=== PATIENT | male | born 1975 | race Two or more races ===

== ENCOUNTER 2025-07-17 07:48 | Inpatient (IN) | payer MEDICAID, OTHER ==
[~2025-07-17] VITALS: Ht 175.3 cm; Wt 93.6 kg
--- NOTE | 2025-07-17 08:16 | ED.PDOC ---
History of Present Illness HPI Comments 50 year old male presents the ER with no prior medical history associated with a chief complaint of high blood pressure. Patient reports on having a high blood pressure reading at home for the past three days with symptoms of shortness a breath, headache on and off. Patient notes on having left knee surgery on Monday. Denies chills, fever, N/V/D, CP. No other associated symptoms, modifiers, recent injuries or sick contacts present at this time. Chief Complaint: High Blood Pressure Time Seen by MD: 08:00 Reviewed Notes: Nurses Notes, Medications, Allergies Allergies: Coded Allergies: NO KNOWN ALLERGIES (Unverified , 07/17/25) Home Meds Reported Medications Losartan Potassium (Losartan Potassium) 25 Mg Tab, 1 TAB PO DAILY, #90 TAB 1 Refill 07/17/25 Information Source: Patient Mode of Arrival: Ambulatory Severity: Moderate Timing: Days Duration: Since onset, Days Prehospital treatment: None Past Medical History PAST MEDICAL HISTORY: Denies Surgical History: Denies all surgeries Family History Family History: Reviewed,noncontributory to illness, Unknown Social History Smoker: Non-Smoker Alcohol: Denies ETOH Use Drugs: Denies Drug Use Lives In: Home Constitutional: denies: chills, diaphoresis, fatigue, fever, malaise, sweats, weakness, others EENTM: denies: blurred vision, double vision, ear bleeding, ear discharge, ear drainage, ear pain, ear ringing, eye pain, eye redness, hearing loss, mouth pain, mouth swelling, nasal discharge, nose bleeding, nose congestion, nose pain, photophobia, tearing, throat pain, throat swelling, voice changes, others Respiratory: reports: shortness of breath; denies: cough, hemoptysis, orthopnea, SOB at rest, SOB with excertion, stridor, wheezing, others Cardiovascular: denies: chest pain, dizzy spells, diaphoresis, Dyspnea on exertion, edema, irregular heart beat, left arm pain, lightheadedness, palpitations, PND, syncope, others Gastrointestinal: denies: abdomen distended, abdominal pain, blood streaked bowels, constipated, diarrhea, dysphagia, difficulty swallowing, hematemesis, melena, nausea, poor appetite, poor fluid intake, rectal bleeding, rectal pain, vomiting, others Genitourinary: denies: burning, dysuria, flank pain, frequency, hematuria, incontinence, penile discharge, penile sore, pain, testicle pain, testicle swelling, urgency, others Neurological: reports: headache; denies: dizziness, fainting, left sided numbness, left sided weakness, numbness, paresthesia, pre-existing deficit, right sided numbness, right sided weakness, seizure, speech problems, tingling, tremors, weakness, others Musculoskeletal: denies: back pain, gout, joint pain, joint swelling, muscle pain, muscle stiffness, neck pain, others Integumetry: denies: bruises, change in color, change in hair/nails, dryness, laceration, lesions, lumps, rash, wounds, others Allergic/Immunocompromised: denies: Difficulty Healing, Frequent Infections, Hives, Itching, others Hematologic/Lymphatic: denies: anemia, blood clots, easy bleeding, easy bruising, swollen glands, others Endocrine: denies: excessive hunger, excessive sweating, excessive thirst, excessive urination, flushing, intolerance to cold, intolerance to heat, unexplained weight gain, unexplained weight loss, others Psychiatric: denies: anxiety, bipolar disorder, depression, hopeless, panic disorder, schizophrenia, sleepless, suicidal, others All Other Systems: Reviewed and Negative Physical Exam General Appearance: Moderate Distress, Normal HEENT: Normal ENT Inspection, Pharynx Normal, TMs Normal Neck: Full Range of Motion, Non-Tender, Normal, Normal Inspection Respiratory: Chest Non-Tender, Lungs Clear, No Accessory Muscle Use, No Respiratory Distress, Normal Breath Sounds Cardiovascular: No Edema, No JVD, No Murmur, No Gallop, Normal Peripheral Pulses, Regular Rate/Rhythm Breast Exam: Deferred Gastrointestinal: No Organomegaly, Non Tender, No Pulsatile Mass, Normal Bowel Sounds, Soft Genitalia: Deferred Pelvic: Deferred Rectal: Deferred Extremities: No calf tenderness, Normal capillary refill, Normal inspection, Normal range of motion, Non-tender, No pedal edema Musculoskeletal : Apperance: Normal Neurologic: Alert, ribbon lapper tender II-XII nml as Tested, No Motor Deficits, Normal Affect, Normal Mood, No Sensory Deficits Cerebellar Function: NOT DONE Reflexes: Normal Skin: Dry, Normal Color, Warm Peripheral Pulses: 3+ Radial (R), 3+ Radial (L) Lymphatic: No Adenopathy Was a procedure done? Was a procedure done?: No Differential Dx Considerations may include: Hypertensive urgency Electrolyte imbalance X-Ray, Labs, Meds, VS Vital Signs Date Time Temp Pulse Resp B/P (MAP) Pulse Ox O2 Delivery O2 Flow Rate FiO2 07/17/25 09:57 66 20 98 Room Air* 0 21 07/17/25 09:41 98.3 58 16 158/102 (120) 97 98.3 07/17/25 08:40 156/114 07/17/25 08:32 98.7 63 16 156/114 (128) 96 98.7 07/17/25 08:32 63 16 96 Room Air 07/17/25 07:50 97.6 85 16 172/111 95 97.6 Lab Test 07/17/25 10:03 07/17/25 09:36 07/17/25 08:28 Range/Units White Blood Count 7.3 4.4-10.8 10^3/uL Red Blood Count 5.04 4.5-5.90 10^6/uL Hemoglobin 15.3 13.5-17.5 g/dL Hematocrit 44.9 41.0-53.0 % Mean Corpuscular Volume 89.1 80.0-100.0 fL Mean Corpuscular Hemoglobin 30.3 28.0-32.0 pg Mean Corpuscular Hemoglobin Concent 34.0 32.0-36.0 g/dL Red Cell Distribution Width 13.3 11.8-14.3 % Platelet Count 255 140-450 10^3/uL Mean Platelet Volume 9.1 6.9-10.8 fL Neutrophils (%) (Auto) 55.1 37.0-80.0 % Lymphocytes (%) (Auto) 26.9 10.0-50.0 % Monocytes (%) (Auto) 8.8 0.0-12.0 % Eosinophils (%) (Auto) 8.5 H 0.0-7.0 % Basophils (%) (Auto) 0.7 0.0-2.0 % Neutrophils # (Auto) 4.0 1.6-8.6 10 ^3/uL Lymphocytes # (Auto) 2.0 0.4-5.4 10 ^3/uL Monocytes # (Auto) 0.6 0-1.3 10 ^3/uL Eosinophils # (Auto) 0.6 0-0.8 10 ^3/uL Basophils # (Auto) 0.1 0-0.2 10 ^3/uL Nucleated Red Blood Cells 0.1 % Hemoglobin A1c 6.0 H <5.7 % A1C Troponin I High Sensitivity 77 *H 77 *H </=54 ng/L Urine Color Light-yellow Yellow Urine Clarity Clear Clear Urine pH 6.0 5.0-9.0 Urine Specific [place] 1.019 1.001-1.035 Urine Protein Negative Negative Urine Ketones Negative Negative Urine Blood Negative Negative /uL Urine Nitrite Negative Negative Urine Bilirubin Negative Negative Urine Urobilinogen Normal Negative mg/dL Urine Leukocyte Esterase Negative Negative /uL Urine RBC 1 0 - 3 /hpf Urine Microscopic WBC < 1 0-3 /HPF Urine Squamous Epithelial Cells None seen <5 /hpf Urine Bacteria None seen None Seen /hpf Urine Glucose Normal Normal mg/dL Prothrombin Time 9.7 9.3-11.8 sec Prothrombin Time INR 0.91 0.9-1.15 D-Dimer, Quantitative 0.33 0.0-0.49 mg/L FEU Sodium Level 141 136-145 mmol/L Potassium Level 4.2 3.5-5.1 mmol/L Chloride Level 106 98-107 mmol/L Carbon Dioxide Level 26 20-31 mmol/L Anion Gap 9 5-15 Blood Urea Nitrogen 10 9-23 mg/dL Creatinine 0.93 0.700-1.30 mg/dL Glomerular Filtration Rate Calc 100 >90 mL/min BUN/Creatinine Ratio 10.8 10.0-20.0 Serum Glucose 99 74-106 mg/dL Calcium Level 9.4 8.7-10.4 mg/dL Current Medications Medications (Trade) Dose Ordered Sig/Catalino Route Start Time Stop Time Status Last Admin Amlodipine Besylate (Norvasc Tablet) 10 mg ONCE ONCE PO 07/17/25 08:15 07/17/25 08:16 DC 07/17/25 08:40 Enoxaparin Sodium (Lovenox) 90 mg ONCE ONCE SC 07/17/25 09:30 07/17/25 09:31 DC 07/17/25 09:51 Patient alert. Complaining of high blood pressure. Was given Norvasc pain Cardiac marker elevated. Was given Lovenox. EKG reviewed does not show any acute changes. Extremity in the patient. Echocardiogram. Cardiology consultation. Explained to the patient. Continue monitoring. Time of 1ST Reevaluation: 08:30 Reevaluation 1ST: Unchanged Patient Education/Counseling: Diagnosis, Treatment, Prognosis Family Education/Counseling: No Family Present SEPSIS Sepsis Screen Date sepsis recognized/suspect: Jul 17, 2025 Time Sepsis recognized/suspect: 750 Recent Procedure: No On Antibiotic Therapy: No Respiratory Rate >20: No Heart Rate >90: No Temp<36 C (96.8 F) or >38.3 C: No SBP <90 or MAP <65 mmHG: No New Acute Mental Status Change: No Is the patient on CPAP, BIPAP,: No Vital Signs Date Time Temp Pulse Resp B/P (MAP) Pulse Ox O2 Delivery O2 Flow Rate FiO2 07/17/25 09:57 66 20 98 Room Air* 0 21 07/17/25 09:41 98.3 58 16 158/102 (120) 97 98.3 07/17/25 08:40 156/114 07/17/25 08:32 98.7 63 16 156/114 (128) 96 98.7 07/17/25 08:32 63 16 96 Room Air 07/17/25 07:50 97.6 85 16 172/111 95 97.6 Laboratory Tests Test 07/17/25 10:03 White Blood Count 7.3 10^3/uL (4.4-10.8) Medications Medications Dose Ordered Sig/Catalino Route Start Time Stop Time Status Last Admin Dose Admin Amlodipine Besylate 10 mg ONCE ONCE PO 07/17/25 08:15 07/17/25 08:16 DC 07/17/25 08:40 Enoxaparin Sodium 90 mg ONCE ONCE SC 07/17/25 09:30 07/17/25 09:31 DC 07/17/25 09:51 Departure 1 Departure Time of Disposition: 17:50 Impression: Primary Impression: Hypertensive urgency Additional Impression: Demand ischemia Disposition: ADMITTED INPATIENT Admit to: Med Surg Condition: Guarded Critical Care Note Critical Care Time?: Yes (90 min-critical care time only) Stability Stability form required: No Heart Score Heart Score: Heart Score Response (Comments) Value History Slightly Suspicious 0 EKG Normal 0 Age 45-64 1 Risk Factors >3 or Hx ASHD 2 Troponin 1-2 x's Normal limit 1 Total 4 I personally scribed for KRISTINA JUNG MD ([email or web address]) on 07/17/25 at 08:16. Electronically submitted by Geoffrey Cotto ([email or web address]). KRISTINA JUNG MD Jul 17, 2025 08:16
[2025-07-17 09:00] LABS: Chloride 106 mmol/L (98-107); Potassium 4.2 mmol/L (3.5-5.1); Sodium 141 mmol/L (136-145)
[2025-07-17 09:01] LABS: Anion Gap 9 (5-15); Carbon Dioxide 26 mmol/L (20-31)
[2025-07-17 09:02] LABS: Calcium 9.4 mg/dL (8.7-10.4)
[2025-07-17 09:07] LABS: BUN/Creatinine Ratio 10.8 (10.0-20.0); Blood Urea Nitrogen 10 mg/dL (9-23); Glucose 99 mg/dL (74-106)
[2025-07-17] MEDS: ENOXAPARIN SOD 100 MG/1 ML SYRINGE SC ONE (09:51)
[2025-07-17 09:57] VITALS: PULSE 66; RESP 20; O2SAT 98
--- NOTE | 2025-07-17 11:38 | DVHHP2 ---
Admitting Diagnosis: Right-sided chest pain History of Present Illness 50 year old male presents the ER with no prior medical history associated with a chief complaint of high blood pressure. Patient reports on having a high blood pressure reading at home for the past three days with symptoms of shortness a breath, headache on and off. Patient notes on having left knee surgery on Monday. Denies chills, fever, N/V/D, CP. No other associated symptoms, modifiers, recent injuries or sick contacts present at this time. PAST MEDICAL HISTORY: Denies Surgical History: Denies all surgeries Family History Family History: Reviewed,noncontributory to illness, Unknown Social History Smoker: Non-Smoker Alcohol: Denies ETOH Use Drugs: Denies Drug Use Lives In: Home Allergies: Coded Allergies: NO KNOWN ALLERGIES (Unverified , 07/17/25) Current Medications Current Medications Medications (Trade) Dose Ordered Sig/Catalino Route PRN Reason Start Time Stop Time Status Last Admin Sodium Chloride (Saline Lock Ns) 10 ml Q8HR IV 07/17/25 14:00 UNV Acetaminophen (Tylenol Tablet) 650 mg Q6HP PRN PO PAIN SCALE 1-3 OR TEMP>100.4 07/17/25 11:45 UNV Acetaminophen/ Hydrocodone Bitart ([place] 5/325MG Tab) 1 tab Q4HP PRN PO MODERATE PAIN (4-6 PAIN SCALE) 07/17/25 11:45 UNV Hydromorphone HCl (Dilaudid Injection) 0.5 mg Q4HP PRN IV SEVERE PAIN (7-10 PAIN SCALE) 07/17/25 11:45 UNV Ondansetron HCl (Zofran) 4 mg Q4HP PRN IV NAUSEA / VOMITING 07/17/25 11:45 UNV Nitroglycerin (Ntrostat Sublingual) 0.4 mg Q5MINP PRN SL FOR CHEST PAIN 07/17/25 11:45 UNV Morphine Sulfate 2 mg Q30M PRN IV FOR CHEST PAIN 07/17/25 11:45 UNV Enoxaparin Sodium (Lovenox) 90 mg Q12HR SC 07/17/25 22:00 UNV Vital Signs Vital Signs Date Time Temp Pulse Resp B/P (MAP) Pulse Ox O2 Delivery O2 Flow Rate FiO2 07/17/25 09:57 66 20 98 Room Air* 0 07/17/25 09:41 98.3 158/102 (120) 98.3 Physical Exam Generally-50 years old male, well nourished well developed. Mild distress HEENT-atraumatic normocephalic Heart-regular rate and rhythm Lungs clear to auscultate Abdomen soft nontender nondistended Musculoskeletal-no edema cyanosis Neuro-AO x3, no focal deficits SEPSIS Sepsis Screen Date sepsis recognized/suspect: Jul 17, 2025 Time Sepsis recognized/suspect: 750 Recent Procedure: No On Antibiotic Therapy: No Respiratory Rate >20: No Heart Rate >90: No Temp<36 C (96.8 F) or >38.3 C: No SBP <90 or MAP <65 mmHG: No New Acute Mental Status Change: No Is the patient on CPAP, BIPAP,: No Physician Orders Cardiac Diet-2gna,Lofat,Lochol (07/17/25 Lunch) Npo (Nothing By Mouth) Diet (07/18/25 Breakfast) Complete Blood Count (07/18/25 05:00) Complete Blood Count (07/19/25 05:00) Complete Blood Count (07/20/25 05:00) Complete Blood Count (07/21/25 05:00) Complete Blood Count (07/22/25 05:00) Comprehensive Metabolic Panel (07/18/25 05:00) Comprehensive Metabolic Panel (07/19/25 05:00) Comprehensive Metabolic Panel (07/20/25 05:00) Comprehensive Metabolic Panel (07/21/25 05:00) Comprehensive Metabolic Panel (07/22/25 05:00) Admit (07/17/25 11:33) Code Status (07/17/25 11:33) Vital Signs .PER UNIT PROTOCOL (07/17/25 11:33) Review Orders With Adm.Md (07/17/25 11:33) Encourage Activity As Tolerate (07/17/25 11:33) Sodium Chloride Lock (Saline Lock Ns) (07/17/25 14:00) Acetaminophen Tablet (Tylenol Tablet) (07/17/25 11:45) Notify Md Of Changes From Base (07/17/25 11:33) Advance Directive (07/17/25 11:33) Patient Condition (07/17/25 11:33) Allergies (07/17/25 11:33) Hydrocodone-Acet 5/325mg Tab ([place] 5/32 (07/17/25 11:45) Hydromorphone Injection (Dilaudid Inject (07/17/25 11:45) Ondansetron Hcl (Zofran) (07/17/25 11:45) Nitroglycerin Sublingual (Ntrostat Subli (07/17/25 11:45) Morphine Sulfate Injection (07/17/25 11:45) Stat Ekg For Chest Pain (07/17/25 11:33) Notify Md Of Changes From Base (07/17/25 11:33) Warp Tester For 24 Hours (07/17/25 11:33) Emergency Dysrhythmia Protocol (07/17/25 11:33) Rhythm Strips Once Every Shift (07/17/25 11:33) Oxygen By Nasal Cannula (07/17/25 11:33) Enoxaparin Sodium (Lovenox) (07/17/25 22:00) Echo 2d Mode Cardiac Dop (07/17/25 11:40) * Cardiology Consult (07/17/25 11:40) Vital Signs Date Time Temp Pulse Resp B/P (MAP) Pulse Ox O2 Delivery O2 Flow Rate FiO2 07/17/25 09:57 66 20 98 Room Air* 0 21 07/17/25 09:41 98.3 58 16 158/102 (120) 97 98.3 07/17/25 08:40 156/114 07/17/25 08:32 98.7 63 16 156/114 (128) 96 98.7 07/17/25 08:32 63 16 96 Room Air 07/17/25 07:50 97.6 85 16 172/111 95 97.6 Laboratory Tests Test 07/17/25 10:03 White Blood Count 7.3 10^3/uL (4.4-10.8) Medications Medications Dose Ordered Sig/Catalino Route Start Time Stop Time Status Last Admin Dose Admin Amlodipine Besylate 10 mg ONCE ONCE PO 07/17/25 08:15 07/17/25 08:16 DC 07/17/25 08:40 Enoxaparin Sodium 90 mg ONCE ONCE SC 07/17/25 09:30 07/17/25 09:31 DC 07/17/25 09:51 Results Labs Test 07/17/25 12:09 07/17/25 11:53 07/17/25 10:03 07/17/25 09:36 Range/Units Troponin I High Sensitivity 71 *H </=54 ng/L Urine Opiates Screen Neg NEGATIVE Urine Fentanyl Screen Neg NEGATIVE Urine Barbiturates Screen Neg NEGATIVE Urine Phencyclidine Screen Neg NEGATIVE Urine Amphetamines Screen Neg NEGATIVE Urine Benzodiazepines Screen Neg NEGATIVE Urine Cocaine Screen Neg NEGATIVE Urine Cannabinoids Screen Neg NEGATIVE White Blood Count 7.3 4.4-10.8 10^3/uL Red Blood Count 5.04 4.5-5.90 10^6/uL Hemoglobin 15.3 13.5-17.5 g/dL Hematocrit 44.9 41.0-53.0 % Mean Corpuscular Volume 89.1 80.0-100.0 fL Mean Corpuscular Hemoglobin 30.3 28.0-32.0 pg Mean Corpuscular Hemoglobin Concent 34.0 32.0-36.0 g/dL Red Cell Distribution Width 13.3 11.8-14.3 % Platelet Count 255 140-450 10^3/uL Mean Platelet Volume 9.1 6.9-10.8 fL Neutrophils (%) (Auto) 55.1 37.0-80.0 % Lymphocytes (%) (Auto) 26.9 10.0-50.0 % Monocytes (%) (Auto) 8.8 0.0-12.0 % Eosinophils (%) (Auto) 8.5 H 0.0-7.0 % Basophils (%) (Auto) 0.7 0.0-2.0 % Neutrophils # (Auto) 4.0 1.6-8.6 10 ^3/uL Lymphocytes # (Auto) 2.0 0.4-5.4 10 ^3/uL Monocytes # (Auto) 0.6 0-1.3 10 ^3/uL Eosinophils # (Auto) 0.6 0-0.8 10 ^3/uL Basophils # (Auto) 0.1 0-0.2 10 ^3/uL Nucleated Red Blood Cells 0.1 % Urine Color Light-yellow Yellow Urine Clarity Clear Clear Urine pH 6.0 5.0-9.0 Urine Specific [place] 1.019 1.001-1.035 Urine Protein Negative Negative Urine Ketones Negative Negative Urine Blood Negative Negative /uL Urine Nitrite Negative Negative Urine Bilirubin Negative Negative Urine Urobilinogen Normal Negative mg/dL Urine Leukocyte Esterase Negative Negative /uL Urine RBC 1 0 - 3 /hpf Urine Microscopic WBC < 1 0-3 /HPF Urine Squamous Epithelial Cells None seen <5 /hpf Urine Bacteria None seen None Seen /hpf Urine Glucose Normal Normal mg/dL Test 07/17/25 08:28 Range/Units Prothrombin Time 9.7 9.3-11.8 sec Prothrombin Time INR 0.91 0.9-1.15 D-Dimer, Quantitative 0.33 0.0-0.49 mg/L FEU Sodium Level 141 136-145 mmol/L Potassium Level 4.2 3.5-5.1 mmol/L Chloride Level 106 98-107 mmol/L Carbon Dioxide Level 26 20-31 mmol/L Anion Gap 9 5-15 Blood Urea Nitrogen 10 9-23 mg/dL Creatinine 0.93 0.700-1.30 mg/dL Glomerular Filtration Rate Calc 100 >90 mL/min BUN/Creatinine Ratio 10.8 10.0-20.0 Serum Glucose 99 74-106 mg/dL Calcium Level 9.4 8.7-10.4 mg/dL Primary Diagnosis Chest pain elevated troponin rule out ACS Plan Elevated plateau 70s Check BNP, CBC, INR, D-dimer and UA Check echo of the heart to rule out ACS Pain control Antiemetic Cardiology consult Full code Lovenox for DVT prophylaxis No GI prophylaxis needed Plan discussed with: Patient Problems List: (1) Chest pain, rule out acute myocardial infarction Date of Service: Jul 17, 2025 Billing Provider: LEONORA PARDO MD Common Visit Codes: [id number] INP/OBS CARE (MOD) LEONORA PARDO MD Jul 17, 2025 11:38
[2025-07-17] MEDS ORDERED: HYDROcodone-ACET 5/325MG TAB PO PRN (11:45)
[2025-07-17] MEDS ORDERED: ONDANSETRON HCL 4 MG/2 ML VIAL IV PRN (11:45)
[2025-07-17] MEDS ORDERED: HYDROmorphone HCL 2 MG/ML VL/or syr IV PRN (11:45)
[2025-07-17] MEDS ORDERED: MORPHINE SULFATE INJ 2 MG/ml SYRG IV PRN (11:45)
[2025-07-17] MEDS ORDERED: NITROGLYCERIN 0.4 MG SL TAB SL PRN (11:45)
[2025-07-17 12:18] LABS: Hematocrit 44.9 % (41.0-53.0); Hemoglobin 15.3 g/dL (13.5-17.5); Mean Corpuscular Hemoglobin 30.3 pg (28.0-32.0); Mean Corpuscular Volume 89.1 fL (80.0-100.0); Nucleated Red Blood Cells % 0.1 %
[2025-07-17 12:31] LABS: Amphetamine Screen, Urine Neg (NEGATIVE); Barbiturate Scree,Urine Neg (NEGATIVE); Benzodiazephine Screen, Urine Neg (NEGATIVE); Cannabinoid Screen, Urine Neg (NEGATIVE); Cocaine Screen, Urine Neg (NEGATIVE); Opiate Scree,Urine Neg (NEGATIVE); Phencyclidine Screen, Urine Neg (NEGATIVE)
[2025-07-17 12:36] LABS: Urine Protein, UAD Negative (Negative)
[2025-07-17 13:00] LABS: INR 0.91 (0.9-1.15); Prothrombin Time 9.7 sec (9.3-11.8)
--- NOTE | 2025-07-17 14:37 | DVHINCON2 ---
Date Seen: Jul 17, 2025 Referring Physician MD Elvin Reason for Consultation Elevated troponin, rule out ACS History of Present Illness This is a 50-year-old male patient who presents to the emergency room with chief complaint of dizziness and headache for three weeks. The patient admits he ran out of his antihypertensive medication approximately one month ago. Initial blood pressure reading in the emergency room was 172/111. Initial twelve lead electrocardiogram reveals sinus bradycardia with nonspecific ST segment changes to inferior leads. Initial troponin level of 77ng/L with flat trend thereafter. Significant past medical history includes hypertension. He denies following up with a construction services technician in the outpatient setting. Past Medical History Past medical history reviewed. No other significant than mentioned above. Past Surgical History Left knee meniscus repair Back surgery Family History Family history reviewed. Social History Denies the use of tobacco, alcohol or illicit drugs. Allergies: Coded Allergies: NO KNOWN ALLERGIES (Unverified , 07/17/25) Home Meds Home medications reviewed. Current Medications Current Medications Medications (Trade) Dose Ordered Sig/Catalino Route PRN Reason Start Time Stop Time Status Last Admin Sodium Chloride (Saline Lock Ns) 10 ml Q8HR IV 07/17/25 14:00 UNV Acetaminophen (Tylenol Tablet) 650 mg Q6HP PRN PO PAIN SCALE 1-3 OR TEMP>100.4 07/17/25 11:45 UNV Acetaminophen/ Hydrocodone Bitart ([place] 5/325MG Tab) 1 tab Q4HP PRN PO MODERATE PAIN (4-6 PAIN SCALE) 07/17/25 11:45 UNV Hydromorphone HCl (Dilaudid Injection) 0.5 mg Q4HP PRN IV SEVERE PAIN (7-10 PAIN SCALE) 07/17/25 11:45 UNV Ondansetron HCl (Zofran) 4 mg Q4HP PRN IV NAUSEA / VOMITING 07/17/25 11:45 UNV Nitroglycerin (Ntrostat Sublingual) 0.4 mg Q5MINP PRN SL FOR CHEST PAIN 07/17/25 11:45 UNV Morphine Sulfate 2 mg Q30M PRN IV FOR CHEST PAIN 07/17/25 11:45 UNV Enoxaparin Sodium (Lovenox) 90 mg Q12HR SC 07/17/25 22:00 07/17/25 13:10 DC Losartan Potassium (Cozaar Tablet) 50 mg DAILY PO 07/18/25 10:00 UNV Review of Systems Constitutional: No symptom reported Ears, Nose, & Throat: No symptom reported Eyes: No symptom reported Neurological: Dizziness, headache Pulmonary/Respiratory: No symptoms reported Cardiovascular: No symptom reported Gastrointestinal: No symptom reported Genitourinary: No symptom reported Musculoskeletal: No symptom reported Skin: No symptom reported Psychiatric: No symptom reported Endocrine: No symptom reported Hematologic/Lymphatic: No symptom reported Vital Signs Vital Signs Date Time Temp Pulse Resp B/P (MAP) Pulse Ox O2 Delivery O2 Flow Rate FiO2 07/17/25 13:29 98.2 63 16 156/101 (119) 94 98.2 07/17/25 09:57 Room Air* 0 21 Physical Exam General Appearance: Cooperative. Well-developed. Well-nourished. No acute distress. Pulmonary/Respiratory: Clear, bilateral breaths sounds. Cardiovascular/Chest: Regular rate and rhythm. Peripheral Pulses: 2+ Radial (R). 2+ Radial (L). 2+ Pedal (R). 2+ Pedal (L) Abdominal Exam: Normal bowel sounds. Ankle Exam: Negative ankle edema Lower extremities: Negative lower extremity edema Neuro/Mental Status: A/OX4, coherent. Thoughts/Psych: Normal thought pattern. Appropriate mood and affect. Good judgment and insight. Appearance: No acute distress. Skin Exam: Normal inspection. Normal color. Warm and dry. Labs/Diagnostic Data Labs Test 07/17/25 12:09 07/17/25 11:53 07/17/25 10:03 07/17/25 09:36 Range/Units Troponin I High Sensitivity 71 *H </=54 ng/L Urine Opiates Screen Neg NEGATIVE Urine Fentanyl Screen Neg NEGATIVE Urine Barbiturates Screen Neg NEGATIVE Urine Phencyclidine Screen Neg NEGATIVE Urine Amphetamines Screen Neg NEGATIVE Urine Benzodiazepines Screen Neg NEGATIVE Urine Cocaine Screen Neg NEGATIVE Urine Cannabinoids Screen Neg NEGATIVE White Blood Count 7.3 4.4-10.8 10^3/uL Red Blood Count 5.04 4.5-5.90 10^6/uL Hemoglobin 15.3 13.5-17.5 g/dL Hematocrit 44.9 41.0-53.0 % Mean Corpuscular Volume 89.1 80.0-100.0 fL Mean Corpuscular Hemoglobin 30.3 28.0-32.0 pg Mean Corpuscular Hemoglobin Concent 34.0 32.0-36.0 g/dL Red Cell Distribution Width 13.3 11.8-14.3 % Platelet Count 255 140-450 10^3/uL Mean Platelet Volume 9.1 6.9-10.8 fL Neutrophils (%) (Auto) 55.1 37.0-80.0 % Lymphocytes (%) (Auto) 26.9 10.0-50.0 % Monocytes (%) (Auto) 8.8 0.0-12.0 % Eosinophils (%) (Auto) 8.5 H 0.0-7.0 % Basophils (%) (Auto) 0.7 0.0-2.0 % Neutrophils # (Auto) 4.0 1.6-8.6 10 ^3/uL Lymphocytes # (Auto) 2.0 0.4-5.4 10 ^3/uL Monocytes # (Auto) 0.6 0-1.3 10 ^3/uL Eosinophils # (Auto) 0.6 0-0.8 10 ^3/uL Basophils # (Auto) 0.1 0-0.2 10 ^3/uL Nucleated Red Blood Cells 0.1 % Urine Color Light-yellow Yellow Urine Clarity Clear Clear Urine pH 6.0 5.0-9.0 Urine Specific [place] 1.019 1.001-1.035 Urine Protein Negative Negative Urine Ketones Negative Negative Urine Blood Negative Negative /uL Urine Nitrite Negative Negative Urine Bilirubin Negative Negative Urine Urobilinogen Normal Negative mg/dL Urine Leukocyte Esterase Negative Negative /uL Urine RBC 1 0 - 3 /hpf Urine Microscopic WBC < 1 0-3 /HPF Urine Squamous Epithelial Cells None seen <5 /hpf Urine Bacteria None seen None Seen /hpf Urine Glucose Normal Normal mg/dL Test 07/17/25 08:28 Range/Units Prothrombin Time 9.7 9.3-11.8 sec Prothrombin Time INR 0.91 0.9-1.15 D-Dimer, Quantitative 0.33 0.0-0.49 mg/L FEU Sodium Level 141 136-145 mmol/L Potassium Level 4.2 3.5-5.1 mmol/L Chloride Level 106 98-107 mmol/L Carbon Dioxide Level 26 20-31 mmol/L Anion Gap 9 5-15 Blood Urea Nitrogen 10 9-23 mg/dL Creatinine 0.93 0.700-1.30 mg/dL Glomerular Filtration Rate Calc 100 >90 mL/min BUN/Creatinine Ratio 10.8 10.0-20.0 Serum Glucose 99 74-106 mg/dL Calcium Level 9.4 8.7-10.4 mg/dL Assessment NSTEMI, rule out coronary ischemia Hypertensive urgency Rule out structural heart disease Prediabetes, newly diagnosed Plan/Recommendation We will continue with the following plan/recommendations (Dr. Esposito): * Transthoracic echocardiogram to evaluate cardiac function * Aggressive BP control as tolerated * Chest pain protocol * SARAH score: 1 point * HEART score: 4 points (moderate score) * Close Cardiac surveillance * Nuclear stress test Thank you for allowing us to care for this patient. Please call with any questions or concerns. Critical care time spent: 44 minutes This medical document was created using an electronic medical record system with voice recognition software and computerized dictation system. Although this document has been carefully reviewed, there might still be some phonetic and typographical errors. Occasional wrong-word or ``sound-alike substitutions may have occurred due to the inherent limitations of voice recognition software. These areas are purely typographical due to imperfections of the software programs and do not reflect any compromise in the patient's medical care. Please read the chart carefully and recognize, using context, where these substitutions have occurred. Plan discussed with: Patient NYHA Physical activity limitations: NA Date of Service: Jul 17, 2025 Billing Provider: ANAM BOWERS Cardiology Common Codes: 96969-LRARYZQ INP/OBS CARE (High) Cardiology Consultation Codes: 94805-[id number] CONSULT <45MIN ANAM BOWERS Jul 17, 2025 14:37
--- NOTE | 2025-07-17 15:10 | DVH ---
CLINICAL HISTORY: Persistent headache TECHNIQUE: Helical scanning was performed of the head from the skull base to the vertex. Multiplanar reconstructions were performed. This exam was performed according to our departmental dose optimizat ion program. Up-to-date CT equipment and radiation dose reduction techniques are utilized as appropri ate. CTDI 58.9 DLP 1159.1 COMPARISON: None FINDINGS: There is no evidence for acute intracranial hemorrhage, acute ischemic changes, mass, mass effect, or extra-axial fluid collection. There is no hydrocephalus or midline shift. There is no effacement of the cerebral sulci and basal subarachnoid cisterns. The escalera-white matter differentiation is well huang ntained. The imaged paranasal sinuses are clear. IMPRESSION: NO ACUTE INTRACRANIAL ABNORMALITY SEEN.
[2025-07-17 15:54] LABS: Magnesium 2.1 mg/dL (1.6-2.6); Triglycerides 73.0 mg/dL (< 150)
[2025-07-17 15:56] LABS: Cholesterol 153.0 mg/dL (< 200); HDL Cholesterol 53.0 mg/dL (40-59)
[2025-07-17 16:20] VITALS: PULSE 68; RESP 18; O2SAT 98
[2025-07-17] MEDS: SODIUM CHLOR 0.9% PF (SALINE LOCK) 10ML VIAL/SYR IV SCH (16:39)
[2025-07-17 17:00] VITALS: PULSE 70
[2025-07-17 17:10] VITALS: PULSE 69; RESP 18; TEMP 98.1; O2SAT 96
[2025-07-17] MEDS ORDERED: LOSA-533 PO (17:49)
[2025-07-17] MEDS: ACETAMINOPHEN 325 MG TAB PO PRN (18:44)
--- NOTE | 2025-07-17 18:46 | ECG ---
[facility] Test Date: 2025-07-17 Test Time: 14:06:43 Pat Name: RIKC WALTON Department: ED Room: 0296T Gender: M Php Mysql Developer: PERFECTO : 1975 Requested By: KRISTINA JUNG Order Number: [id number] Reading MD: Measurements Intervals Jones Rate: 58 P: 36 VT: 185 QRS: 87 QRSD: 104 T: 10 QT: 412 QTc: 405 Interpretive Statements Sinus rhythm Please click the below link to view image of tracing.
[2025-07-17 20:00] VITALS: PULSE 76; PULSE 83; RESP 17; O2SAT 95
[2025-07-17 21:00] VITALS: BP 137/83; PULSE 76; RESP 17; TEMP 97.8; O2SAT 95
[2025-07-17] MEDS ORDERED: ENOXAPARIN SOD 100 MG/1 ML SYRINGE SC SCH (22:00)
--- NOTE | 2025-07-17 23:29 | DVHINCON2 ---
Date Seen: Jul 17, 2025 Referring Physician MD Elvin Reason for Consultation Elevated troponin, rule out ACS History of Present Illness This is a 50-year-old male with a past medical history of hypertension who presents to the ED with a complaint of dizziness and headache for three weeks. The patient admits he ran out of his antihypertensive medication approximately one month ago. Initial blood pressure reading in the ED was 172/111. Initial twelve lead electrocardiogram reveals sinus bradycardia with nonspecific ST segment changes to inferior leads. Initial troponin level of 77ng/L with flat trend thereafter.Patient denies following up with a hydroelectric powerplant supervisor in the outpatie nt setting. CT head shows no acute intracranial abnormality. Patient was admitted to the hospital. I am asked to consult on this patient. Past Medical History Past medical history reviewed. No other significant than mentioned above. Past Surgical History Left knee meniscus repair Back surgery Allergies: Coded Allergies: NO KNOWN ALLERGIES (Unverified , 07/17/25) Home Meds Reported Medications Losartan Potassium (Losartan Potassium) 25 Mg Tab, 1 TAB PO DAILY, #90 TAB 1 Refill 07/17/25 Current Medications Current Medications Medications (Trade) Dose Ordered Sig/Catalino Route PRN Reason Start Time Stop Time Status Last Admin Sodium Chloride (Saline Lock Ns) 10 ml Q8HR IV 07/17/25 14:00 Acetaminophen (Tylenol Tablet) 650 mg Q6HP PRN PO PAIN SCALE 1-3 OR TEMP>100.4 07/17/25 11:45 Acetaminophen/ Hydrocodone Bitart ([place] 5/325MG Tab) 1 tab Q4HP PRN PO MODERATE PAIN (4-6 PAIN SCALE) 07/17/25 11:45 Hydromorphone HCl (Dilaudid Injection) 0.5 mg Q4HP PRN IV SEVERE PAIN (7-10 PAIN SCALE) 07/17/25 11:45 Ondansetron HCl (Zofran) 4 mg Q4HP PRN IV NAUSEA / VOMITING 07/17/25 11:45 Nitroglycerin (Ntrostat Sublingual) 0.4 mg Q5MINP PRN SL FOR CHEST PAIN 07/17/25 11:45 Morphine Sulfate 2 mg Q30M PRN IV FOR CHEST PAIN 07/17/25 11:45 Enoxaparin Sodium (Lovenox) 90 mg Q12HR SC 07/17/25 22:00 07/17/25 13:10 DC Losartan Potassium (Cozaar Tablet) 50 mg DAILY PO 07/18/25 10:00 Review of Systems Constitutional: No symptom reported Ears, Nose, & Throat: No symptom reported Eyes: No symptom reported Neurological: Dizziness, headache Pulmonary/Respiratory: No symptoms reported Cardiovascular: No symptom reported Gastrointestinal: No symptom reported Genitourinary: No symptom reported Musculoskeletal: No symptom reported Skin: No symptom reported Psychiatric: No symptom reported Endocrine: No symptom reported Hematologic/Lymphatic: No symptom reported Vital Signs Vital Signs Date Time Temp Pulse Resp B/P (MAP) Pulse Ox O2 Delivery O2 Flow Rate FiO2 07/17/25 14:06 58 07/17/25 13:29 98.2 16 156/101 (119) 94 98.2 07/17/25 09:57 Room Air* 0 21 Physical Exam GENERAL: Alert and oriented x 3. No acute distress. EYES: PERRL, EOMI. Anicteric. HENT: Moist mucous membranes. LUNGS: Clear to auscultation bilaterally. CARDIOVASCULAR: Regular rate and rhythm. ABDOMEN: Soft, nontender and nondistended. EXTREMITIES: No edema. NEUROLOGIC: No focal neurological deficits. SKIN: Warm, dry. Labs/Diagnostic Data Labs Test 07/17/25 12:09 07/17/25 11:53 07/17/25 10:03 07/17/25 09:36 Range/Units Magnesium Level 2.1 1.6-2.6 mg/dL Troponin I High Sensitivity 71 *H </=54 ng/L Triglycerides Level 73 < 150 mg/dL Cholesterol Level 153 < 200 mg/dL LDL Cholesterol 95 < 100 mg/dL HDL Cholesterol 53 40-59 mg/dL Thyroid Stimulating Hormone (TSH) 0.59 0.55-4.78 uIU/mL Urine Opiates Screen Neg NEGATIVE Urine Fentanyl Screen Neg NEGATIVE Urine Barbiturates Screen Neg NEGATIVE Urine Phencyclidine Screen Neg NEGATIVE Urine Amphetamines Screen Neg NEGATIVE Urine Benzodiazepines Screen Neg NEGATIVE Urine Cocaine Screen Neg NEGATIVE Urine Cannabinoids Screen Neg NEGATIVE White Blood Count 7.3 4.4-10.8 10^3/uL Red Blood Count 5.04 4.5-5.90 10^6/uL Hemoglobin 15.3 13.5-17.5 g/dL Hematocrit 44.9 41.0-53.0 % Mean Corpuscular Volume 89.1 80.0-100.0 fL Mean Corpuscular Hemoglobin 30.3 28.0-32.0 pg Mean Corpuscular Hemoglobin Concent 34.0 32.0-36.0 g/dL Red Cell Distribution Width 13.3 11.8-14.3 % Platelet Count 255 140-450 10^3/uL Mean Platelet Volume 9.1 6.9-10.8 fL Neutrophils (%) (Auto) 55.1 37.0-80.0 % Lymphocytes (%) (Auto) 26.9 10.0-50.0 % Monocytes (%) (Auto) 8.8 0.0-12.0 % Eosinophils (%) (Auto) 8.5 H 0.0-7.0 % Basophils (%) (Auto) 0.7 0.0-2.0 % Neutrophils # (Auto) 4.0 1.6-8.6 10 ^3/uL Lymphocytes # (Auto) 2.0 0.4-5.4 10 ^3/uL Monocytes # (Auto) 0.6 0-1.3 10 ^3/uL Eosinophils # (Auto) 0.6 0-0.8 10 ^3/uL Basophils # (Auto) 0.1 0-0.2 10 ^3/uL Nucleated Red Blood Cells 0.1 % Hemoglobin A1c 6.0 H <5.7 % A1C Urine Color Light-yellow Yellow Urine Clarity Clear Clear Urine pH 6.0 5.0-9.0 Urine Specific [place] 1.019 1.001-1.035 Urine Protein Negative Negative Urine Ketones Negative Negative Urine Blood Negative Negative /uL Urine Nitrite Negative Negative Urine Bilirubin Negative Negative Urine Urobilinogen Normal Negative mg/dL Urine Leukocyte Esterase Negative Negative /uL Urine RBC 1 0 - 3 /hpf Urine Microscopic WBC < 1 0-3 /HPF Urine Squamous Epithelial Cells None seen <5 /hpf Urine Bacteria None seen None Seen /hpf Urine Glucose Normal Normal mg/dL Test 07/17/25 08:28 Range/Units Prothrombin Time 9.7 9.3-11.8 sec Prothrombin Time INR 0.91 0.9-1.15 D-Dimer, Quantitative 0.33 0.0-0.49 mg/L FEU Sodium Level 141 136-145 mmol/L Potassium Level 4.2 3.5-5.1 mmol/L Chloride Level 106 98-107 mmol/L Carbon Dioxide Level 26 20-31 mmol/L Anion Gap 9 5-15 Blood Urea Nitrogen 10 9-23 mg/dL Creatinine 0.93 0.700-1.30 mg/dL Glomerular Filtration Rate Calc 100 >90 mL/min BUN/Creatinine Ratio 10.8 10.0-20.0 Serum Glucose 99 74-106 mg/dL Calcium Level 9.4 8.7-10.4 mg/dL Assessment NSTEMI, rule out coronary ischemia. Hypertensive urgency. Rule out structural heart disease. Prediabetes, newly diagnosed. Plan/Recommendation I agree with your ongoing assessment and care of plan. Patient has been seen by Isabella Martinez NP on my behalf, her and I discussed the plan with the patient. Transthoracic echocardiogram to evaluate cardiac function. Aggressive BP control as tolerated. Chest pain protocol. SARAH score: 1 point. HEART score: 4 points (moderate score). Close Cardiac surveillance. Nuclear stress test. Additional plan as per the hospital course. Plan discussed with: Patient NYHA Physical activity limitations: NA Date of Service: Jul 17, 2025 Billing Provider: RADHA BELLAMY MD Cardiology Common Codes: [id number] INP/OBS CARE (High) Cardiology Consultation Codes: [id number] CONSULT <45MIN RADHA BELLAMY MD Jul 17, 2025 16:18
[2025-07-18] VITALS (7 sets, daily range): BP systolic 127–168; BP diastolic 73–100; PULSE 54–83; RESP 17–18; TEMP 97.6–98.6; O2SAT 93–98
[2025-07-18] MEDS: REGADENOSON 0.4 MG/5 ML SYRG IV ONE ×2 (08:44→08:45)
[2025-07-18 08:47] LABS: Hematocrit 47.6 % (41.0-53.0); Hemoglobin 16.2 g/dL (13.5-17.5); Mean Corpuscular Hemoglobin 30.1 pg (28.0-32.0); Mean Corpuscular Volume 88.6 fL (80.0-100.0); Nucleated Red Blood Cells % 0.2 %
[2025-07-18 09:14] LABS: Alanine Aminotransferase 40 U/L (7-40); Albumin 4.7 g/dL (3.2-4.8); Alkaline Phosphatase 64 U/L (46-116); Anion Gap 10 (5-15); BUN/Creatinine Ratio 8.1 (10.0-20.0); Bilirubin, Total 1.4 mg/dL (0.2-1.0); Blood Urea Nitrogen 7 mg/dL (9-23); Calcium 9.5 mg/dL (8.7-10.4); Carbon Dioxide 26 mmol/L (20-31); Chloride 103 mmol/L (98-107); Glucose 113 mg/dL (74-106); Potassium 4.1 mmol/L (3.5-5.1); Sodium 139 mmol/L (136-145); Total Protein 7.3 g/dL (5.7-8.2)
[2025-07-18] MEDS: LOSARTAN POTASSIUM 50 MG TAB PO SCH (12:19)
--- NOTE | 2025-07-18 12:24 | DVHPN2 ---
Objective Vitals Vital Signs Date Time Temp Pulse Resp B/P (MAP) Pulse Ox O2 Delivery O2 Flow Rate FiO2 07/18/25 12:19 153/100 07/18/25 09:00 97.7 66 18 94 97.7 07/18/25 08:00 Room Air* 0 21 Intake/Output Intake and Output 07/18/25 07:00 Intake Total 1470 ml Balance 1470 ml Intake Oral 1470 ml # Voids 6 Medications Current Medications Medications Dose Ordered Sig/Catalino Route Start Time Stop Time Status Last Admin Dose Admin Sodium Chloride 10 ml Q8HR IV 07/17/25 14:00 07/18/25 06:08 10 ML Acetaminophen 650 mg Q6HP PRN PO 07/17/25 11:45 07/17/25 18:44 650 MG Acetaminophen/ Hydrocodone Bitart 1 tab Q4HP PRN PO 07/17/25 11:45 Hydromorphone HCl 0.5 mg Q4HP PRN IV 07/17/25 11:45 Ondansetron HCl 4 mg Q4HP PRN IV 07/17/25 11:45 Nitroglycerin 0.4 mg Q5MINP PRN SL 07/17/25 11:45 Morphine Sulfate 2 mg Q30M PRN IV 07/17/25 11:45 Losartan Potassium 50 mg DAILY PO 07/18/25 10:00 07/18/25 12:19 50 MG Laboratory Results Laboratory Tests 07/18/25 07:18 Chemistry Test 07/18/25 07:18 Albumin 4.7 g/dL (3.2-4.8) Calcium Level 9.5 mg/dL (8.7-10.4) Total Protein 7.3 g/dL (5.7-8.2) LFT Test 07/18/25 07:18 Alanine Aminotransferase (ALT) 40 U/L (7-40) Alkaline Phosphatase 64 U/L (46-116) Aspartate Amino Transferase (AST) 32 U/L (13-40) Total Bilirubin 1.4 mg/dL (0.2-1.0) H Urinalysis Test 07/17/25 09:36 Urine Color Light-yellow (Yellow) Urine Clarity Clear (Clear) Urine pH 6.0 (5.0-9.0) Urine Specific [place] 1.019 (1.001-1.035) Urine Protein Negative (Negative) Urine Ketones Negative (Negative) Urine Blood Negative /uL (Negative) Urine Nitrite Negative (Negative) Urine Bilirubin Negative (Negative) Urine Urobilinogen Normal mg/dL (Negative) Urine Leukocyte Esterase Negative /uL (Negative) Urine RBC 1 /hpf (0 - 3) Urine Microscopic WBC < 1 /HPF (0-3) Urine Squamous Epithelial Cells None seen /hpf (<5) Urine Bacteria None seen /hpf (None Seen) Urine Glucose Normal mg/dL (Normal) PATRICE CLINTON MD Jul 18, 2025 12:24
--- NOTE | 2025-07-18 13:02 | DVHDS2 ---
Discharge Summary Date of Admission Jul 17, 2025 at 11:33 Date of Discharge: Jul 18, 2025 Admitting Diagnosis Chest pain elevated troponin rule out ACS Hypertension Labs/Diagnostic Data: Laboratory Results Test 07/18/25 07:18 07/17/25 12:09 07/17/25 11:53 07/17/25 10:03 White Blood Count 7.3 10^3/uL (4.4-10.8) Red Blood Count 5.37 10^6/uL (4.5-5.90) Hemoglobin 16.2 g/dL (13.5-17.5) Hematocrit 47.6 % (41.0-53.0) Mean Corpuscular Volume 88.6 fL (80.0-100.0) Mean Corpuscular Hemoglobin 30.1 pg (28.0-32.0) Mean Corpuscular Hemoglobin Concent 34.0 g/dL (32.0-36.0) Red Cell Distribution Width 13.6 % (11.8-14.3) Platelet Count 278 10^3/uL (140-450) Mean Platelet Volume 8.6 fL (6.9-10.8) Neutrophils (%) (Auto) 62.6 % (37.0-80.0) Lymphocytes (%) (Auto) 21.1 % (10.0-50.0) Monocytes (%) (Auto) 7.5 % (0.0-12.0) Eosinophils (%) (Auto) 8.0 % (0.0-7.0) Basophils (%) (Auto) 0.8 % (0.0-2.0) Neutrophils # (Auto) 4.6 10 ^3/uL (1.6-8.6) Lymphocytes # (Auto) 1.5 10 ^3/uL (0.4-5.4) Monocytes # (Auto) 0.5 10 ^3/uL (0-1.3) Eosinophils # (Auto) 0.6 10 ^3/uL (0-0.8) Basophils # (Auto) 0.1 10 ^3/uL (0-0.2) Nucleated Red Blood Cells 0.2 % Sodium Level 139 mmol/L (136-145) Potassium Level 4.1 mmol/L (3.5-5.1) Chloride Level 103 mmol/L (98-107) Carbon Dioxide Level 26 mmol/L (20-31) Anion Gap 10 (5-15) Blood Urea Nitrogen 7 mg/dL (9-23) Creatinine 0.86 mg/dL (0.700-1.30) Glomerular Filtration Rate Calc 105 mL/min (>90) BUN/Creatinine Ratio 8.1 (10.0-20.0) Serum Glucose 113 mg/dL (74-106) Calcium Level 9.5 mg/dL (8.7-10.4) Total Bilirubin 1.4 mg/dL (0.2-1.0) Aspartate Amino Transferase (AST) 32 U/L (13-40) Alanine Aminotransferase (ALT) 40 U/L (7-40) Alkaline Phosphatase 64 U/L (46-116) Total Protein 7.3 g/dL (5.7-8.2) Albumin 4.7 g/dL (3.2-4.8) Magnesium Level 2.1 mg/dL (1.6-2.6) Troponin I High Sensitivity 71 ng/L (</=54) Triglycerides Level 73 mg/dL (< 150) Cholesterol Level 153 mg/dL (< 200) LDL Cholesterol 95 mg/dL (< 100) HDL Cholesterol 53 mg/dL (40-59) Thyroid Stimulating Hormone (TSH) 0.59 uIU/mL (0.55-4.78) Urine Opiates Screen Neg (NEGATIVE) Urine Fentanyl Screen Neg (NEGATIVE) Urine Barbiturates Screen Neg (NEGATIVE) Urine Phencyclidine Screen Neg (NEGATIVE) Urine Amphetamines Screen Neg (NEGATIVE) Urine Benzodiazepines Screen Neg (NEGATIVE) Urine Cocaine Screen Neg (NEGATIVE) Urine Cannabinoids Screen Neg (NEGATIVE) Hemoglobin A1c 6.0 % A1C (<5.7) Test 07/17/25 09:36 07/17/25 08:28 Urine Color Light-yellow (Yellow) Urine Clarity Clear (Clear) Urine pH 6.0 (5.0-9.0) Urine Specific [place] 1.019 (1.001-1.035) Urine Protein Negative (Negative) Urine Ketones Negative (Negative) Urine Blood Negative /uL (Negative) Urine Nitrite Negative (Negative) Urine Bilirubin Negative (Negative) Urine Urobilinogen Normal mg/dL (Negative) Urine Leukocyte Esterase Negative /uL (Negative) Urine RBC 1 /hpf (0 - 3) Urine Microscopic WBC < 1 /HPF (0-3) Urine Squamous Epithelial Cells None seen /hpf (<5) Urine Bacteria None seen /hpf (None Seen) Urine Glucose Normal mg/dL (Normal) Prothrombin Time 9.7 sec (9.3-11.8) Prothrombin Time INR 0.91 (0.9-1.15) D-Dimer, Quantitative 0.33 mg/L FEU (0.0-0.49) Other Laboratory Tests 07/18/25 07:18 Brief Hx & Hospital Course: This is a 50 years old female come to emergency department because of elevation of blood pressure and shortness for breath for three days. Patient also complained of headache on and off. Patient had a left knee surgery on Monday so he was worry and thing that he should checked out before he had surgery done. The patient was found to have elevation of troponin level. Cardiology see the patient. Echo was done. Showed normal EF of 60%. Subsequently patient had cardiac stress test done showed normal stress test. No ischemia. Ejection fraction normal 62%. Patient will be discharged home today. Patient also was found to have prediabetic with HgA1C at 6.0. Advised the patient to diet to bring down blood glucose. Advised the patient to cut down carbohydrates in his food. Cut down sugar and soda drink. Follow up closely with his primary care physician. Recommend repeat hemoglobin A1c in three months. New medication for high blood pressure. Activity as tolerated. Diet per home diet. Follow up with primary care physician 1-2 weeks. I increase his losartan to 50 mg p.o. daily. Physical exam: HEENT: Normocephalic atraumatic pupils equal react to light and accommodation. Extraocular muscles intact, conjunctiva pink, oropharynx moist, no thrush, no exudate. Lymphatic: No lymphadenopathy Cardiovascular exam: S1, S2 was heard. No murmurs, rubs, gallops Lung: Clear on auscultation bilaterally, no wheeze, rale, rhonchi. GI: Abdominal soft, nondistended, nontenderness, positive bowel sounds. Extremity: No crepitus, cyanosis, edema. Pedal pulses present bilateral. Full range of motion. Skin: Normal turgor, no rash. Psych: Alert, oriented x3. Neurology: No focal deficits, cranial nerve II to XII grossly intact. This medical document was created using an electronic medical record system with M*[employer]rency direct computerized dictation system. Although this document has been carefully reviewed, there may still be some phonetic and typographical errors. These areas are purely typographical due to imperfections of the software programs, and do not reflect any compromise in the patient's medical care. Condition at Discharge: Stable Final Diagnosis/Problems List Non ST-elevation RI Hypertension Prediabetic with hemoglobin A1c six Discharge Disposition: Home Discharge Instruct/Medications Diet: Cardiac 2g Na,low cholest Activity: No Restrictions, As Tolerated Follow Up/Referral: PCP 1-2 WEEKS Medications: RESUME HOME MEDS Scheduled Losartan Potassium (Losartan Potassium), 50 MG PO DAILY Discontinued Medications Losartan Potassium (Losartan Potassium), 1 TAB PO DAILY, (Reported) Discharge Statement: "Patient was advised to return to the ER or call 911 if any headaches, dizziness, shortness of breath, chest pain, abdominal pain, bleeding, fevers, or worsening of medical condition. Patient was counseled about treatment plan, medications, possible side effects, patientverbalized understanding. All questions were answered to the best of my ability. This discharge took greater then 30 minutes in planning, reviewing documentation, counseling the patient, and discussing with other team members." ASSESSMENT ASSESSMENT Assessment ELEVATION OF TROPONIN LEVEL Date of Service: Jul 18, 2025 Billing Provider: PATRICE CLINTON MD Common Visit Codes: 90618-IOR/OBS DISCH DAY >30min PATRICE CLINTON MD Jul 18, 2025 13:02
--- NOTE | 2025-07-18 13:13 | DVHSR ---
APPROVED REPORT Exam: Nuclear Stress Test BMI: 0 Stress Test Details Stress Test: Pharmacologic stress testing performed using 0.4 mg of regadenoson per 5 mL given IV ov er 10 seconds. HR Resting HR: 72 bpmMax Heart Rate (APMHR): 170.948002 bpm Max HR Achieved: 111 bpmTarget HR (85% APMHR): 144.749723 bpm % of APMHR: 65.29 Recovery HR: 79 bpm BP Resting BP: 135/90 mmHg Recovery BP: 143/96 mmHg ECG Resting ECG: Sinus Rhythm Clinical Reason for Termination: Completed protocol Nurse Comments Recieved pt. from [facility]. A/Ox4 on RA. Connected to compliance monitor, VS stable. PIV flushes well. Re viewed POC. Pt. verbalized understanding of procedure including risks and side effects, agrees for st ress testing. Lexiscan stress test performed per protocol. [facility] tech administered Cardiolite. Pt. tolerated well . Pt. stable, no change on exam. VS returned to baseline. Transferred to [facility] via wheelchair w/ te ch. Stress ECG Conclusion lvef 62% no severe ischemia noted minor fixed basal latera wall defect ntoed NM EXAM: Myocardial Perfusion REST/STRESS Imaging Protocol: Rest Tc-99m/Stress Tc-99m 2 days Resting Data Rest SPECT myocardial perfusion imaging was performed in supine position 45 minutes following the int ravenous injection of 10.0 mCi of Tc-99m Sestamibi. Time of rest injection: 14:45 Date: 07/17/2025 Time of rest imagin:30 Date: 07/17/2025 Administration Route: IV Administration Site: Left Arm Pharmacologic Stress Pharmacologic stress test was performed by injecting Regadenoson 0.4 mg IV push followed by the intra venous injection of 25.6 mCi of Tc-99m Sestamibi. Time of stress injection: 08:47 Date: 07/18/2025 Time of stress imagin:47 Date: 07/18/2025 Administration Route: IV Administration Site: Left Arm Gated Stress SPECT was performed 60 minutes after stress injection. The images were gated to evaluate regional wall motion and calculate left ventricular ejection fracti on. Stress only was performed in the Supine position. Nuclear Conclusion Nuclear Findings: negative for ischemia lvef 62% no severe ischemia noted minor fixed basal latera wall defect ntoed
--- NOTE | 2025-07-18 13:25 | DVHSR ---
APPROVED REPORT EXAM: Two-dimensional and M-mode echocardiogram with Doppler and color Doppler. Blood Pressure: 127/73 mmHg INDICATION elevated trops r/o acs RISK FACTORS Height: 5'9, Weight: 206 DIMENSIONS LVDd4.2 (3.8-5.7cm)LA (2D)4.4 (1.9-4.0cm)Aortic Root3.5 (2.0-3.7cm) LVDs2.4 (2.5-4.0cm)LA (MM) (1.9-4.0cm)Aortic Cusp Exc1.6 (1.5-2.0cm) EF (%) 65.0 (55-70%)Rt. Atrium3.6 (1.9-4.0cm)Asc. Aorta cm IVSd0.9 (0.7-1.1cm)RV (D)3.8 (1.8-2.4cm) PWd0.9 (0.7-1.1cm) Mitral Valve MitralMitral Stenosis E wave0.79m/sMV Mean GR.1mmHg A wave0.81m/sMV Peak GR.29mmHg E/A ratio1.02D MVAcm2 DECEL [id number] 1/2 Timems Aortic Valve Aortic ValveAortic Stenosis V11.21m/Carroll Mean GR.4mmHg V21.22m/Carroll Peak GR.6mmHg LVOT Diameter2.2 (1.8-2.4cm)Doppler AVA3.77cm2 Pulmonic Valve V21.00m/s Tricuspid Valve TR Velocity2.29m/s [id number] Conclusion lver 65% mild LVH normal atri no severe valve abnormalities noted
[2025-07-18] MEDS ORDERED: LOSA-534 PO (16:21)
--- NOTE | 2025-07-18 19:37 | DVHPN2 ---
Progress Note - Dictate Date Seen: Jul 18, 2025 Medical Necessity Reason Pt with a Central, PICC or Fol: No Subjective Patient was seen and evaluated in follow up. No overnight events. Echocardiogram shows an EF of 65%. Patient is cardiac stable for discharge. Telemetry reviewed. vital signs Vital Sign Date Time Temp Pulse Resp B/P (MAP) Pulse Ox O2 Delivery O2 Flow Rate FiO2 07/18/25 17:07 97.7 70 18 141/97 (112) 94 97.7 07/18/25 08:00 Room Air* 0 21 Total Intake and Output 07/17/25 07/17/25 07/18/25 15:00 23:00 07:00 Intake Total 270 ml 1200 ml Balance 270 ml 1200 ml objective GENERAL: Alert and oriented x 3. No acute distress. EYES: PERRL, EOMI. Anicteric. HENT: Moist mucous membranes. LUNGS: Clear to auscultation bilaterally. CARDIOVASCULAR: Regular rate and rhythm. ABDOMEN: Soft, nontender and nondistended. EXTREMITIES: No edema. NEUROLOGIC: No focal neurological deficits. SKIN: Warm, dry. laboratory and microbiology Laboratory Tests 07/18/25 07:18 Test 07/18/25 07:18 Range/Units Serum Glucose 113 H 74-106 mg/dL Problem List NSTEMI, rule out coronary ischemia. Hypertensive urgency. Rule out structural heart disease. Prediabetes, newly diagnosed. Assessment/Plan Continued all current supportive medical care. Losartan. DVT prophylactics. Morphine and Hazen for pain management. Additional plan as per the hospital course. Plan discussed with: Patient RADHA BELLAMY MD Jul 18, 2025 18:12
== END 2025-07-18 17:45 | disposition home or self-care (01) | DRG 199 ==
LOC: ER 07:48 → OVERFLOW 11:33 → TELE-WESTW 17:13
PROVIDERS: ADMIT Internal Medicine; ATTEND Internal Medicine
DX: I16.0 Hypertensive urgency (principal); I21.A1 Myocardial infarction type 2; I10 Essential (primary) hypertension; R73.03 Prediabetes
CPT/HCPCS: 36415; 70450; 78452; 80048; 80053; 80061; 80307; 81001; 83036; 83735; 84443; 84484; 85025; 85379; 85610; 93005; 93017; 93306; 96372; 99291; G0378

== ENCOUNTER 2025-08-24 00:56 | Emergency (ER) | payer MEDICAID ==
[~2025-08-24 00:56] MED LIST: LOSA-534 PO
--- NOTE | 2025-08-24 01:23 | ED.PDOC ---
SOB-HPI HPI Comments 50-year-old male who came to ER for shortness a breath. Patient has a history of hypertension and PA. states for the past 3 days he has been experiencing shortness a breath, especially when lying down or with exertion. Noted also mild midsternal chest pressure. Patient is saturating 99% on room air REVIEW OF SYSTEMS: General: No fever, no chills, or fatigue HEENT: No sore throat, no earache, no congestion, no neck pain. Cardiac: No chest pain. No palpitations. Lungs: No shortness of breath, no cough. GI: No nausea, no vomiting, no diarrhea, no constipation, no abdominal pain : No dysuria, frequency, or urgency. No hematuria. Musculoskeletal: No joint pain , no joint swelling, no extremity edema. Skin: No rash, no itching. Neuro: No headache, no dizziness, no weakness EXAM: General: Awake, alert and oriented. No acute distress. Skin: Skin in warm, dry and intact. Appropriate color for ethnicity. HEENT: The head is normocephalic and atraumatic. Conjunctivae are clear without exudates or hemorrhage. Sclera is non-icteric. EOM are intact. No signs of nyst agmus. Eyelids are normal in appearance without swelling or lesions. Oral mucosa is pink and moist Neck: The neck is supple with normal range of motion. No JVD. Cardiac: Heart rate and rhythm are normal. No murmurs, gallops, or rubs are auscultated. Respiratory: No signs of respiratory distress. Lung sounds are clear in all lobes bilaterally without rales, rhonchi, or wheezes. Abdominal: Abdomen is soft, non-tender without distention. Bowel sounds are present and normoactive in all four quadrants. Extremities: Upper and lower extremities are atraumatic in appearance without deformity or edema. Neurological: The patient is awake, alert and oriented to person, place, and time with normal speech. Speech is clear. There is no facial asymmetry. Psychiatric: Appropriate mood and affect. Good judgement and insight Chief Complaint: Shortness of Breath Time Seen by MD: 01:23 Reviewed notes: Nurses Notes Information Source: Patient Mode of Arrival: Ambulatory Past Medical History PAST MEDICAL HISTORY: HTN, PA Surgical History: Denies all surgeries Family History Family History: Reviewed,noncontributory to illness Social History Smoker: Non-Smoker Alcohol: Denies ETOH Use Drugs: Denies Drug Use Lives In: Home EKG EKG : Pulse Rate (adult): 65 Cardiac Rhythm: NSR Was a procedure done? Was a procedure done?: No Differential Dx Differential Diagnosis: Bronchitis, CHF, COPD, Myocardial infarction, Pneumonia, Respiratory Distress, URI X-Ray, Labs, Meds, VS Vital Signs Date Time Temp Pulse Resp B/P (MAP) Pulse Ox O2 Delivery O2 Flow Rate FiO2 08/24/25 02:09 99 Room Air* 0 21 08/24/25 02:00 98.3 66 14 168/108 (128) 97 98.3 08/24/25 01:23 65 08/24/25 01:10 65 08/24/25 01:00 98.4 72 16 167/98 99 98.4 Lab Test 08/24/25 02:21 08/24/25 01:33 Range/Units Troponin I High Sensitivity 43 43 </=54 ng/L White Blood Count 7.8 4.4-10.8 10^3/uL Red Blood Count 4.96 4.5-5.90 10^6/uL Hemoglobin 15.0 13.5-17.5 g/dL Hematocrit 44.1 41.0-53.0 % Mean Corpuscular Volume 89.0 80.0-100.0 fL Mean Corpuscular Hemoglobin 30.3 28.0-32.0 pg Mean Corpuscular Hemoglobin Concent 34.0 32.0-36.0 g/dL Red Cell Distribution Width 13.4 11.8-14.3 % Platelet Count 247 140-450 10^3/uL Mean Platelet Volume 9.0 6.9-10.8 fL Neutrophils (%) (Auto) 53.0 37.0-80.0 % Lymphocytes (%) (Auto) 32.0 10.0-50.0 % Monocytes (%) (Auto) 9.6 0.0-12.0 % Eosinophils (%) (Auto) 4.6 0.0-7.0 % Basophils (%) (Auto) 0.8 0.0-2.0 % Neutrophils # (Auto) 4.1 1.6-8.6 10 ^3/uL Lymphocytes # (Auto) 2.5 0.4-5.4 10 ^3/uL Monocytes # (Auto) 0.7 0-1.3 10 ^3/uL Eosinophils # (Auto) 0.4 0-0.8 10 ^3/uL Basophils # (Auto) 0.1 0-0.2 10 ^3/uL Nucleated Red Blood Cells 0.3 % Sodium Level 143 136-145 mmol/L Potassium Level 4.2 3.5-5.1 mmol/L Chloride Level 106 98-107 mmol/L Carbon Dioxide Level 29 20-31 mmol/L Anion Gap 8 5-15 Blood Urea Nitrogen 8 L 9-23 mg/dL Creatinine 0.87 0.700-1.30 mg/dL Glomerular Filtration Rate Calc 105 >90 mL/min BUN/Creatinine Ratio 9.2 L 10.0-20.0 Serum Glucose 115 H 74-106 mg/dL Calcium Level 9.4 8.7-10.4 mg/dL B-Type Natriuretic Peptide 15.76 0-100 pg/mL Current Medications Medications (Trade) Dose Ordered Sig/Catalino Route Start Time Stop Time Status Last Admin Aspirin 324 mg ONCE ONCE PO 08/24/25 01:30 08/24/25 01:57 DC 08/24/25 02:06 CHEST RADIOGRAPH Indication: cp Technique: Single frontal view of the chest was obtained COMPARISON: None FINDINGS: Lungs and pleural spaces are clear. Cardiac silhouette and yobany are within normal limits. Bones and soft tissues demonstrate no significant abnormality. IMPRESSION: No acute disease. Time of 1ST Reevaluation: 01:20 Reevaluation 1ST: Unchanged Patient Education/Counseling: Need For Follow Up Family Education/Counseling: No Family Present SEPSIS Sepsis Screen Date sepsis recognized/suspect: Aug 24, 2025 Time Sepsis recognized/suspect: 010 Recent Procedure: No On Antibiotic Therapy: No Respiratory Rate >20: No Heart Rate >90: No Temp<36 C (96.8 F) or >38.3 C: No SBP <90 or MAP <65 mmHG: No New Acute Mental Status Change: No Is the patient on CPAP, BIPAP,: No Physician Orders Electrocardigram (08/24/25 01:04) Electrocardigram (08/24/25 02:04) Electrocardigram (08/24/25 04:04) Chest Xray 1 View (08/24/25 01:25) Vital Signs Q1HR (08/24/25 01:25) Warehouse Assistant (08/24/25 ) Vital Signs Date Time Temp Pulse Resp B/P (MAP) Pulse Ox O2 Delivery O2 Flow Rate FiO2 08/24/25 02:09 99 Room Air* 0 21 08/24/25 02:00 98.3 66 14 168/108 (128) 97 98.3 08/24/25 01:23 65 08/24/25 01:10 65 08/24/25 01:00 98.4 72 16 167/98 99 98.4 Laboratory Tests Test 08/24/25 01:33 White Blood Count 7.8 10^3/uL (4.4-10.8) Medications Medications Dose Ordered Sig/Catalino Route Start Time Stop Time Status Last Admin Dose Admin Aspirin 324 mg ONCE ONCE PO 08/24/25 01:30 08/24/25 01:57 DC 08/24/25 02:06 Departure 1 Departure Time of Disposition: 05:17 Impression: Primary Impression: Shortness of breath Disposition: 01 HOME / SELF CARE / HOMELESS Condition: Stable Additional Instructions: ED DISCHARGE INSTRUCTIONS Instructions: Please read all instructions provided in this packet carefully. Although you have been discharged from the Emergency Department, this does not mean that you have a "clean bill of health". No definitive diagnosis for your symptoms has been made today. It is possible that you are in the process of developing a serious illness. This is why you must return to the ED without fail if any new or worsening symptoms (especially if your symptoms include chest pain, trouble breathing, abdominal pain, fever, headache, confusion, trouble seeing, or trouble walking) It is also very important that you see a primary care provider (PCP) within the next 1-3 days to follow up. If you are unable to get an appointment, or if your symptoms do not improve within 1-3 days return to the ED for re-evaluation. You had elevated blood pressure reading today. Untreated high blood pressure can have serious consequences. However, you need a follow-up appointment to recheck your blood pressure to determine whether or not you need treatment. Make an appointment with your primary care provider for this within the next week. SHORTNESS OF BREATH EDUCATION Shortness of breath has many causes. Sometimes conditions such as anxiety can lead to shortness of breath. Some people get mild shortness of breath when they exercise. Trouble breathing also can be a symptom of a serious problem, such as asthma, lung disease, emphysema, heart problems, and pneumonia. If your shortness of breath continues, you may need tests and treatment. Watch for any changes in your breathing and other symptoms. Follow-up care is a martinez part of your treatment and safety. Be sure to make and go to all appointments, and call your doctor if you are having problems. It's also a good idea to know your test results and keep a list of the medicines you take. How can you care for yourself at home? Do not smoke or allow others to smoke around you. If you need help quitting, talk to your doctor about stop-smoking programs and medicines. These can increase your chances of quitting for good. Get plenty of rest and sleep. Take your medicines exactly as prescribed. Call your doctor if you think you are having a problem with your medicine. Find healthy ways to deal with stress. Exercise daily. Get plenty of sleep. Eat regularly and well. When should you call for help? Call 911 anytime you think you may need emergency care. For example, call if: You have severe shortness of breath. You have symptoms of a heart attack. These may include: Chest pain or pressure, or a strange feeling in the chest. Sweating. Shortness of breath. Nausea or vomiting. Pain, pressure, or a strange feeling in the back, neck, jaw, or upper belly or in one or both shoulders or arms. Lightheadedness or sudden weakness. A fast or irregular heartbeat. After you call 911, the film projector operator may tell you to chew 1 adult-strength or 2 to 4 low-dose aspirin. Wait for an ambulance. Do not try to drive yourself. Call your doctor now or seek immediate medical care if: Your shortness of breath gets worse or you start to wheeze. Wheezing is a high- pitched sound when you breathe. You wake up at night out of breath or have to prop your head up on several pillows to breathe. You are short of breath after only light activity or while at rest. Watch closely for changes in your health, and be sure to contact your doctor if: You do not get better over the next 1 to 2 days. Credits for Shortness of Breath: Care Instructions Current as of: June 26, 2024 Author: [employer] Staff Comments 50-year-old male with 3 days of orthopnea, ROBLES. EKG negative for signs of ischemia. High sensitivity troponin negative. CXR shows no acute process. Presentation not suggestive of pneumonia, acute coronary syndrome, pulmonary embolism, pleural effusion, pulmonary edema, CHF exacerbation, or aortic dissection. Patient improved at time of discharge. Patient has not been hypoxic, in respiratory distress or dyspneic during the ED observation. Patient able to ambulate without difficulty. Patient felt stable for discharge to follow up with PCP promptly. Patient advised to return to the ED with any new, worsening or concerning symptoms or inability to follow up with PCP. Extensive evaluation was performed in attempt to identify or rule out: (See differential diagnosis section) The following tests were ordered, and results were reviewed by me and discussed with patient: (See diagnostic results section) The following test were independently interpreted by me: EKG I reviewed and agreed with the following test results read by other providers: Chest x-ray I reviewed the following notes from the pt's past medical encounters: Most recent encounter for NSTEMI Decision regarding hospitalization or escalation of hospital level of care: Risks and benefits of admission for further treatment of patient's condition was considered however due to patient's stable condition patient will be discharged to follow up closely or return to care for worsening of condition or inability to follow up. Critical Care Note Critical Care Time?: No Stability Stability form required: No Heart Score Heart Score: Heart Score Response (Comments) Value History Moderate Suspicious 1 EKG Normal 0 Age 45-64 1 Risk Factors 1 or 2 risk factors 1 Troponin Normal limit 0 Total 3 I personally scribed for MARCIN KIM MD ([employer]) on 08/24/25 at 01:23. Electronically submitted by Ciro Corrigan ([email or web address]). I personally scribed for MARCIN KIM MD ([email or web address]) on 08/24/25 at 03:08. Electronically submitted by Ciro Corrigan ([email or web address]). MARCIN KIM MD Aug 24, 2025 01:23
[2025-08-24 01:51] LABS: Chloride 106 mmol/L (98-107); Potassium 4.2 mmol/L (3.5-5.1); Sodium 143 mmol/L (136-145)
[2025-08-24 01:52] LABS: Anion Gap 8 (5-15); Carbon Dioxide 29 mmol/L (20-31)
[2025-08-24 01:53] LABS: Calcium 9.4 mg/dL (8.7-10.4)
[2025-08-24 01:57] LABS: BUN/Creatinine Ratio 9.2 (10.0-20.0)
--- NOTE | 2025-08-24 01:58 | DVH ---
CHEST RADIOGRAPH Indication: cp Technique: Single frontal view of the chest was obtained COMPARISON: None FINDINGS: Lungs and pleural spaces are clear. Cardiac silhouette and yobany are within normal limits. Bones and s oft tissues demonstrate no significant abnormality. IMPRESSION: No acute disease.
[2025-08-24 02:00] VITALS: BP 168/108; PULSE 66; RESP 14; TEMP 98.3
[2025-08-24 02:04] LABS: Blood Urea Nitrogen 8 mg/dL (9-23); Glucose 115 mg/dL (74-106)
[2025-08-24 02:09] VITALS: O2SAT 99
[2025-08-24 04:53] LABS: Hematocrit 44.1 % (41.0-53.0); Hemoglobin 15.0 g/dL (13.5-17.5); Mean Corpuscular Hemoglobin 30.3 pg (28.0-32.0); Mean Corpuscular Volume 89.0 fL (80.0-100.0); Nucleated Red Blood Cells % 0.3 %
[2025-08-24] MEDS ORDERED: HYDR-3682 PO (05:34)
--- NOTE | 2025-08-25 02:31 | ECG ---
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
== END 2025-08-24 05:40 | disposition home or self-care (01) ==
LOC: ER 00:56
DX: R06.02 Shortness of breath (principal); R07.9 Chest pain, unspecified; I10 Essential (primary) hypertension; I25.2 Old myocardial infarction
CPT/HCPCS: 36415; 71045; 80048; 83880; 84484; 85025; 93005